=== PATIENT | male | born 1940 | race African-American/Black ===

== ENCOUNTER → 2018-03-07 | Outpatient (CLI) | payer OTHER ==
[~2018-03-07] MED LIST: ACTOS 45 MG45 M1 PO; ALBUTEROL; ALBUTEROL2.5 MG/31 INH; ALLOPURINOL 30300 M1 PO; AMLODIPINE BESYL5 M1 PO; ASPIRIN325 PO; BYSTOLIC10 MG PO; CLOPIDOGREL75 MG PO; COZAAR 50 MG TA50 M1 PO; EPOGEN2000 UNIT/ SUBQ; FERRO-TIME325 MG PO; FERROUS GLUCON325 M4 PO; FORADIL 1212 MCG/KI1 INH; FUROSEMIDE 40 M40 M1 PO; GLIPIZIDE ER5 MG PO; GLUCOTROL5 MG PO; K-DUR10 MEQ PO; LASIX 20 MG TAB20 MG PO; LASIX 40 MG TAB40 M1 PO; LAXATIVE8.6 MG PO; MIRALAX255 GM PO; SENNA PO; SPIRIVA INH; TAMSULOSIN HCL0.4 M1 PO; ZYRTEC10 M2 PO
== END ==
LOC: NUC 08:20
DX: R07.89 Other chest pain (principal); I11.0 Hypertensive heart disease with heart failure; I50.9 Heart failure, unspecified; E78.5 Hyperlipidemia, unspecified; I73.9 Peripheral vascular disease, unspecified; I48.91 Unspecified atrial fibrillation; I25.10 Atherosclerotic heart disease of native coronary artery without angina pectoris; E11.9 Type 2 diabetes mellitus without complications

== ENCOUNTER → 2020-06-04 | Outpatient (CLI) | payer OTHER | LOC: SJCVC 10:05 | PROVIDERS: ATTEND Internal Medicine Cardiovascular Disease | DX: R94.31 Abnormal electrocardiogram [ECG] [EKG] (principal); I25.10 Atherosclerotic heart disease of native coronary artery without angina pectoris; R07.9 Chest pain, unspecified; E11.22 Type 2 diabetes mellitus with diabetic chronic kidney disease; I12.9 Hypertensive chronic kidney disease with stage 1 through stage 4 chronic kidney disease, or unspecified chronic kidney disease; N18.3 Chronic kidney disease, stage 3 (moderate); E11.51 Type 2 diabetes mellitus with diabetic peripheral angiopathy without gangrene; Z79.4 Long term (current) use of insulin; Z95.2 Presence of prosthetic heart valve; Z95.1 Presence of aortocoronary bypass graft ==

== ENCOUNTER → 2020-06-11 | Outpatient (CLI) | payer OTHER | LOC: SJCVCIMAG 11:10 | PROVIDERS: ATTEND Internal Medicine Cardiovascular Disease | DX: I44.0 Atrioventricular block, first degree (principal); I70.203 Unspecified atherosclerosis of native arteries of extremities, bilateral legs; T82.856A Stenosis of peripheral vascular stent, initial encounter; E78.5 Hyperlipidemia, unspecified; I25.810 Atherosclerosis of coronary artery bypass graft(s) without angina pectoris; I12.9 Hypertensive chronic kidney disease with stage 1 through stage 4 chronic kidney disease, or unspecified chronic kidney disease; E11.22 Type 2 diabetes mellitus with diabetic chronic kidney disease; N18.9 Chronic kidney disease, unspecified; E66.9 Obesity, unspecified; Z82.49 Family history of ischemic heart disease and other diseases of the circulatory system; Z95.820 Peripheral vascular angioplasty status with implants and grafts; Z87.891 Personal history of nicotine dependence; Z79.82 Long term (current) use of aspirin; Z79.899 Other long term (current) drug therapy; Z95.1 Presence of aortocoronary bypass graft; Z95.2 Presence of prosthetic heart valve; Y83.8 Other surgical procedures as the cause of abnormal reaction of the patient, or of later complication, without mention of misadventure at the time of the procedure; Y92.89 Other specified places as the place of occurrence of the external cause ==

== ENCOUNTER 2020-06-25 06:52 | Observation (INO) | payer OTHER ==
[~2020-06-25] VITALS: Ht 172.7 cm; Wt 100.2 kg
[2020-06-25 07:32] LABS: HEMATOCRIT 37.4 % (42.0-52.0); HEMOGLOBIN 12.1 gm/dL (14.0-18.0); MCH 29.7 pg (26.0-34.0); MCHC 32.4 g/dL (28.0-37.0); MCV 91.6 fL (80.0-100.0); RBC 4.09 mil/uL (4.50-6.00); RDW 17.3 % (10.5-14.5); WBC 7.8 thou/uL (4.0-11.0)
[2020-06-25 07:45] VITALS: BP 158/60
[2020-06-25 07:49] LABS: CALCIUM 9.6 mg/dL (8.5-10.1); CREATININE 2.1 mg/dL (0.7-1.3)
[2020-06-25] MEDS ORDERED: ALOGLIPTIN6.25 MG PO (08:35)
[2020-06-25] MEDS ORDERED: ASA81BEC PO (08:35)
[2020-06-25] MEDS ORDERED: BRIMONIDINE 0.110 ML EA. EYE (08:37)
[2020-06-25] MEDS ORDERED: ROCALTROL0.25 MCG PO (08:39)
[2020-06-25] MEDS ORDERED: CODEINE SULFATE30 MG PO (08:42)
[2020-06-25] MEDS ORDERED: VOLTAREN GEL 1100 G1 TOP (08:48)
[2020-06-25] MEDS ORDERED: COLACE100 MG PO (08:50)
[2020-06-25] MEDS ORDERED: ZETIA10 MG PO (08:50)
[2020-06-25] MEDS ORDERED: HYDRALAZINE 2525 MG PO (08:54)
[2020-06-25] MEDS ORDERED: LEVEMIR100 UNIT/1 SUBQ (09:00)
[2020-06-25] MEDS ORDERED: XALATAN2.5 ML OPHTHALMIC (09:02)
[2020-06-25] MEDS ORDERED: SINGULAIR 10 MG10 MG PO (09:04)
[2020-06-25] MEDS ORDERED: PROTONIX40 M2 PO (09:05)
[2020-06-25] MEDS ORDERED: MIRALAX119 GM PO (09:06)
[2020-06-25] MEDS ORDERED: CRESTOR40 MG PO (09:07)
[2020-06-25] MEDS ORDERED: FLOMAX0.4 MG PO (09:08)
[2020-06-25] MEDS ORDERED: ORADENT 0.1% DEN5 G1 TOP (09:09)
[2020-06-25] MEDS ORDERED: VALTREX 500 MG500 M1 PER TUBE (09:10)
[2020-06-25] MEDS ORDERED: AMBIEN5 MG PO (09:11)
[2020-06-25 16:00] VITALS: BP 144/63
--- NOTE | 2020-06-25 17:12 | CATHLAB ---
[facility] [place] [address] INVASIVE PROCEDURE REPORT Name: GENEVIEVE SARABIA Room #: 219-P [facility]#: [id number] Admission: 06/25/20 Attend Phys: Ray Carrillo MD, Discharge: Date of : 38 Report #: [id number] THIS REPORT FOR: cc: Rosana Wheatley MD, Mary Ellen MD Mancuso, Gerald M. MD [facility] ~ APPROVED REPORT Study performed: 06/25/2020 10:47:05 Patient Details Patient Status: Out-Patient Room #: The patient is a 79 year-old male Event Personnel Ray Carrillo Truck Greaser, Todd Jim RN, Kelli Bhat RT(R)() Scrub, Jenny Michael RTR Scrub, Marlys Engle RTR Monitor Procedures Performed Coronaries Angiography and Bypass Grafts [id number] CORCA Hemostasis w/ Mynx Indication Chest pain Procedure Narrative The was infiltrated with 1% Lidocaine subcutaneous anesthesia. A SHEATH BRITE-TIP 6F X 11CM ([id number]) sheath was inserted into the LFA^. Coronary angiography was performed using coronary diagnostic catheters. The right coronary system was accessed and visualized with a JR4 catheter. The left coronary system was accessed and visualized with a JL4 catheter. Closure device was deployed with a 6 Fr MYNXGRIP 6/7F #[id number]. The patient tolerated the procedure well and there were no complications associated with the procedure. There was no hematoma. Intraoperative Conscious Sedation Sedation start time: 839 Case end Time: 1044 Fentanyl 200 mcg Versed 3.0 mg SEDATION TOTALS, FLUORO DOSES,AND CONTRAST AMOUNTS ARE ALL FROM A COMBO CASE WITH DR HERNANDEZ Fluoro Time: 40.57 minutes [facility] [address] [address] INVASIVE PROCEDURE REPORT Name: CORNELLGENEVIEVE BALLESTEROS Room #: 219-P [facility]#: [id number] Admission: 06/25/20 Attend Phys: Ray Carrillo, Discharge: Date of : 39 Report #: [id number] Dose: DAP 05138.50 cGycm2 2191 mGy Contrast Type and Amount: Visipaque 147 ml Hemodynamics The aortic pressure is 154/56 mmHg with a mean of 45 mmHg. PCI Technique Lesion Percutaneous coronary intervention was performed on the Popliteal. A LAUNCHER 6FR JR 4 #[id number] Guide Catheter was used to engage the ostium. A Luge Wire .014 x 182CM #[id number] Interventional Guidewire was used to cross the lesion. BALLOON DILATION A Balloon catheter Sprinter OTW 2.5 x 12 #[id number] was inserted and inflated up to 18atm for 33seconds. Additional Inflation: 12atm for 16seconds. STENT DEPLOYMENT A drug-eluting stent RESOLUTE STEFF OTW 3.0 X 26 #[id number] was inserted and inflated up to 18atm for 25seconds. POST STENT DEPLOYMENT BALLOON DILATION A Balloon catheter TREK NC OTW 3.0 X 12 #[id number] was inserted and inflated up to 18atm for 24seconds. Additional Inflation: 22atm for 22seconds. Additional Inflation: 22atm for 22seconds. PCI Technique Lesion 2 Percutaneous Coronary Intervention was performed on the first obtuse marginal branch segment. Conclusion 1. Successful PTCA stent of a ostial proximal tandem lesions in a vein graft to OM system. 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 Dual antiplatelet therapy for vein graft stent noted [facility] [address] [place] [address] INVASIVE PROCEDURE REPORT Name: GENEVIEVE SARABIAHANIEL Room #: 219-P [facility] M.R.#: [id number] Admission: 06/25/20 Attend Phys: Ray Carrillo, Discharge: Date of : 39 Report #: [id number] above. 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 <ELECTRONICALLY SIGNED> By: Ray Carrillo MD, FACC 06/25/201711 11 11 Ray Carrillo MD, FACC /INF
[2020-06-25 20:24] VITALS: BP 146/61
--- NOTE | 2020-06-25 20:34 | NUR ---
ASSUMMED PT CARE AT APPROXIMATELY 1515. PT A&O X4. ASSESSMENT CHARTED. FALL PRECAUTIONS IN PLACE. PT DENIES HAVING CHEST PAIN. PT DENIES HAVING SOB. PT DENIES HAVING ACUTE PAIN. PT POST CATH. L GROIN C/D/I. NO HEMATOMA. VITAL SIGNS STABLE. BLOOD SUGARS STABLE. PT AMBULATES C CAN C STANDBY. PT COMFORTABLE. PT DENIES HAVING FURTHER CONCERNS.
[2020-06-26 00:05] VITALS: BP 157/56
[2020-06-26 04:00] VITALS: BP 166/67
[2020-06-26 05:54] LABS: HEMATOCRIT 32.4 % (42.0-52.0); HEMOGLOBIN 10.5 gm/dL (14.0-18.0); MCH 29.8 pg (26.0-34.0); MCHC 32.3 g/dL (28.0-37.0); MCV 92.3 fL (80.0-100.0); RBC 3.52 mil/uL (4.50-6.00); WBC 7.3 thou/uL (4.0-11.0)
--- NOTE | 2020-06-26 06:03 | NUR ---
GENEVIEVE WAS ADMITTED FOR CATH PROCEDURE (2 STENTS PLACED). HE HAS A LEFT GROIN DRESSING WHICH IS CLEAN/DRY/INTACT; MINX CLOSURE WAS UTILIZED. HE AMBULATES INDEPENDENT OF ASSISTANCE BUT UTILIZES A CANE; SOB ON EXERTION - SO HE BRIEFLY STOPS WHEN AMBULATING FROM BED TO BATHROOM. PATIENT STATED THAT HE USES A CPAP MACHINE AT HOME BUT DID NOT BRING IT BECAUSE HE BELIEVED HE WOULD BE DISCHARGED SOONER. HE WAS PLACED ON 1.5 LPM VIA NASAL CANNULA AND SEEMS TO TOLERATE WELL. PATIENT IS SINUS GARY TYPICALLY IN THE 50S. HE IS PROGRESSING WELL TOWARDS DISCHARGE.
[2020-06-26 06:09] LABS: ALBUMIN 2.9 g/dL (3.4-5.0); CREATININE 1.9 mg/dL (0.7-1.3); TOTAL BILIRUBIN 0.3 mg/dL (0.2-1.0); TOTAL PROTEIN 6.7 g/dL (6.4-8.2); TROPONIN-I 0.2 ng/mL (<0.06)
[2020-06-26 07:36] VITALS: BP 169/69
[2020-06-26] MEDS ORDERED: EFFIENT10 MG PO (07:55)
[2020-06-26 08:51] VITALS: BP 169/69
--- NOTE | 2020-06-26 10:48 | NUR ---
PT CARE ASSUMED APPROX 0700. ASSESSMENT CHARTED. PT DENIES PAIN AND SOA. VSS. DISCHARGED AT THIS TIME. LEFT UNIT APPROX 1030 AFTER DISCHARGE EDUCATION COMPLETED BY THIS NURSE. PT DENIED QUESTIONS OR CONCERNS REGARDING POST HOSPITAL CARE AND F/U. IV OUT, TELE OFF. PT SHOWERED IMMEDIATELY PRIOR TO DISMISSING AND DENIED ANY ISSUES OR CONCERNS. ESCORTED OFF UNIT VIA WHEELCHAIR.
--- NOTE | 2020-06-27 09:08 | EKG ---
[facility] [place] [address] ELECTROCARDIOGRAM REPORT Name: GENEVIEVE SARABIA Room #: 219-P [facility] M.R.#: [id number] Admission: 06/25/20 Attend Phys: Ray Carrillo MD, Discharge: 06/26/20 Date of : 39 Report #: [id number] THIS REPORT FOR: cc: Rosana Wheatley MD, Mary Ellen MD Lundgren,Tobi Rodríguez MD [facility] ~ THIS REPORT FOR: //name// [facility] Test Date: 2020-06-26 Test Time: 07:14:01 Pat Name: GENEVIEVE SARABIA Department: Room: 219 Gender: M Interior Design Coordinator: CARISSA : 1940 Requested By: Ray Carrillo Order Number: [id number] MD: Tobi Alves Measurements Intervals [place] Rate: 58 P: -21 UT: 277 QRS: 38 QRSD: 104 T: 67 QT: 456 QTc: 448 Interpretive Statements Sinus rhythm with first-degree AV block Multiple ventricular premature complexes Inferior infarct, old Compared to ECG 07/22/2017 14:01:59 No significant change was found Electronically Signed On 06-27-2020 9:07:55 CDT by Tobi Alves [email or web address] <ELECTRONICALLY SIGNED> By: Tobi Alves MD, FAC 06/27/20906 3 3 Tobi Alves MD, FAC /EPI
== END 2020-06-26 10:52 | disposition home or self-care (01) ==
LOC: CATH 06:52 → 2N 11:11 → CATH 12:16 → 2N 15:25
PROVIDERS: Nuclear Medicine Nuclear Cardiology; ADMIT Internal Medicine Cardiovascular Disease; ATTEND Internal Medicine Cardiovascular Disease
DX: I25.10 Atherosclerotic heart disease of native coronary artery without angina pectoris (principal); I70.201 Unspecified atherosclerosis of native arteries of extremities, right leg; E11.22 Type 2 diabetes mellitus with diabetic chronic kidney disease; I12.0 Hypertensive chronic kidney disease with stage 5 chronic kidney disease or end stage renal disease; N18.6 End stage renal disease; Z79.82 Long term (current) use of aspirin; Z79.899 Other long term (current) drug therapy
CPT/HCPCS: 10081

== ENCOUNTER → 2020-12-24 | Outpatient (CLI) | payer OTHER ==
[~2020-12-24] MED LIST changes: +ALOGLIPTIN6.25 MG PO; +AMBIEN5 MG PO; +ASA81BEC PO; +BRIMONIDINE 0.110 ML EA. EYE; +CODEINE SULFATE30 MG PO; +COLACE100 MG PO; +CRESTOR40 MG PO; +EFFIENT10 MG PO; +FLOMAX0.4 MG PO; +HYDRALAZINE 2525 MG PO; +LEVEMIR100 UNIT/1 SUBQ; +MIRALAX119 GM PO; +ORADENT 0.1% DEN5 G1 TOP; +PROTONIX40 M2 PO; +ROCALTROL0.25 MCG PO; +SINGULAIR 10 MG10 MG PO; +VALTREX 500 MG500 M1 PER TUBE; +VOLTAREN GEL 1100 G1 TOP; +XALATAN2.5 ML OPHTHALMIC; +ZETIA10 MG PO
== END ==
LOC: SJCVC 09:52
PROVIDERS: ATTEND Internal Medicine Cardiovascular Disease
DX: I25.10 Atherosclerotic heart disease of native coronary artery without angina pectoris (principal); E78.00 Pure hypercholesterolemia, unspecified; E11.22 Type 2 diabetes mellitus with diabetic chronic kidney disease; I12.9 Hypertensive chronic kidney disease with stage 1 through stage 4 chronic kidney disease, or unspecified chronic kidney disease; N18.30 Chronic kidney disease, stage 3 unspecified; E11.51 Type 2 diabetes mellitus with diabetic peripheral angiopathy without gangrene; Z79.899 Other long term (current) drug therapy; Z87.891 Personal history of nicotine dependence; Z72.89 Other problems related to lifestyle; Z79.4 Long term (current) use of insulin; Z95.1 Presence of aortocoronary bypass graft; Z95.2 Presence of prosthetic heart valve; Z88.1 Allergy status to other antibiotic agents; Z88.8 Allergy status to other drugs, medicaments and biological substances

== ENCOUNTER → 2021-01-26 | Outpatient (CLI) | payer OTHER | LOC: SJCVC 10:57 | PROVIDERS: ATTEND Internal Medicine Cardiovascular Disease | DX: R94.31 Abnormal electrocardiogram [ECG] [EKG] (principal); I49.3 Ventricular premature depolarization; I25.10 Atherosclerotic heart disease of native coronary artery without angina pectoris; I73.9 Peripheral vascular disease, unspecified; I35.0 Nonrheumatic aortic (valve) stenosis; E78.00 Pure hypercholesterolemia, unspecified; E11.22 Type 2 diabetes mellitus with diabetic chronic kidney disease; I12.9 Hypertensive chronic kidney disease with stage 1 through stage 4 chronic kidney disease, or unspecified chronic kidney disease; N18.9 Chronic kidney disease, unspecified; E78.5 Hyperlipidemia, unspecified; E66.9 Obesity, unspecified; Z95.1 Presence of aortocoronary bypass graft; Z95.2 Presence of prosthetic heart valve; Z88.8 Allergy status to other drugs, medicaments and biological substances; Z79.82 Long term (current) use of aspirin; Z79.4 Long term (current) use of insulin; Z79.899 Other long term (current) drug therapy; Z87.891 Personal history of nicotine dependence; Z82.49 Family history of ischemic heart disease and other diseases of the circulatory system ==

== ENCOUNTER → 2021-05-06 | Outpatient (CLI) | payer OTHER ==
[~2021-05-06] MED LIST changes: -BRIMONIDINE 0.110 ML EA. EYE; +BRIMONIDINE 0.110 ML OPHTHALMIC; +CLOBETASOL PROP50 M1 TOP; +CRESTOR10 MG PO; +DERMASARRA TOP; +FLUOCINOLONE AC15 G3 TOP; +OLMESARTAN MEDO40 MG PO; +PROAIR HFA8.5 GM INH; +TYLENOL ARTHRI650 MG PO; -VALTREX 500 MG500 M1 PER TUBE; +VALTREX 500 MG500 M1 PO; +VOLTAREN ARTHRI20 GM TOP; +ZYRTEC10 M4 PO
[2021-05-06 12:08] LABS: URINE BILIRUBIN NEGATIVE (Negative); URINE BLOOD NEGATIVE (Negative); URINE CLARITY CLEAR; URINE COLOR YELLOW; URINE GLUCOSE-RANDOM* NEGATIVE (Negative); URINE KETONES NEGATIVE (Negative); URINE LEUKOCYTES-REFLEX NEGATIVE (Negative); URINE NITRITE-REFLEX NEGATIVE (Negative); URINE PROTEIN (DIPSTICK) NEGATIVE (Negative); URINE UROBILINOGEN 0.2 E.U./dl (0.2-1.0)
[2021-05-06 12:09] LABS: HEMATOCRIT 31.9 % (42.0-52.0); HEMOGLOBIN 10.2 gm/dL (14.0-18.0); MCH 29.5 pg (26.0-34.0); MCV 92.2 fL (80.0-100.0); RBC 3.45 mil/uL (4.50-6.00); RDW 17.6 % (10.5-14.5); WBC 5.7 thou/uL (4.0-11.0)
[2021-05-06 12:28] LABS: ALBUMIN 3.5 g/dL (3.4-5.0); CALCIUM 9.1 mg/dL (8.5-10.1); CREATININE 2.9 mg/dL (0.7-1.3); INR 1.07; POTASSIUM 4.7 mmol/L (3.5-5.1); PROTIME 11.6 Seconds (10.5-12.1); TOTAL BILIRUBIN 0.4 mg/dL (0.2-1.0)
[2021-05-07 00:06] LABS: GLYCOHEMOGLOBIN (HGB A1C) 7.7 % (4.8-5.6)
== END ==
LOC: PAC 10:21
PROVIDERS: ATTEND Orthopaedic Surgery
DX: Z01.812 Encounter for preprocedural laboratory examination (principal); E11.9 Type 2 diabetes mellitus without complications; I25.10 Atherosclerotic heart disease of native coronary artery without angina pectoris

== ENCOUNTER → 2021-05-12 | Outpatient (CLI) | payer OTHER | LOC: SJCVCIMAG | PROVIDERS: ATTEND Internal Medicine Cardiovascular Disease | DX: I49.3 Ventricular premature depolarization (principal); I25.10 Atherosclerotic heart disease of native coronary artery without angina pectoris; E78.5 Hyperlipidemia, unspecified; I10 Essential (primary) hypertension; I73.9 Peripheral vascular disease, unspecified; E11.9 Type 2 diabetes mellitus without complications; Z87.891 Personal history of nicotine dependence; Z79.82 Long term (current) use of aspirin; Z79.899 Other long term (current) drug therapy; Z88.8 Allergy status to other drugs, medicaments and biological substances; Z88.1 Allergy status to other antibiotic agents; Z95.1 Presence of aortocoronary bypass graft ==

== ENCOUNTER 2021-05-20 11:19 | Inpatient (IN) | payer OTHER ==
[~2021-05-20] VITALS: Ht 152.4 cm; Wt 99.8 kg
[2021-05-20 14:27] VITALS: BP 175/55
[2021-05-20 17:23] VITALS: BP 176/54
[2021-05-20 19:13] VITALS: BP 168/58
--- NOTE | 2021-05-20 19:25 | NUR ---
Pt came from recovery room with total left knee replacement. Dressed in david bandage C/D/I. Good mobility & pulses bilaterally. IV in right hand running NS at 75ml/hr. No c/o pain noted. Ice pack for pain. Lung sounds diminshed. uses CPAP at night. Hypoactive bowel sounds. Side rails up X 2. Bed in low position. Call light within reach.
[2021-05-21 07:02] VITALS: BP 118/45
[2021-05-21 07:37] VITALS: BP 118/45
[2021-05-21 07:48] LABS: CALCIUM 8.4 mg/dL (8.5-10.1); CREATININE 2.9 mg/dL (0.7-1.3); MAGNESIUM 2.2 mg/dL (1.8-2.4); POTASSIUM 4.7 mmol/L (3.5-5.1)
[2021-05-21 07:53] LABS: HEMOGLOBIN 7.7 gm/dL (14.0-18.0); MCH 29.8 pg (26.0-34.0); MCHC 32.2 g/dL (28.0-37.0); MCV 92.3 fL (80.0-100.0); PLATELET COUNT 77 thou/uL (150-400); RDW 16.8 % (10.5-14.5); WBC 6.8 thou/uL (4.0-11.0)
[2021-05-21 08:57] LABS: ABSOLUTE NEUTROPHILS 5.6 thou/uL (1.4-8.2); BASOPHILS 0.1 % (0.0-2.0); EOSINOPHILS 0.1 % (0.0-3.0); LYMPHOCYTES 10.7 % (24.0-44.0); MONOCYTES 7.3 % (1.0-8.0); POLYS 81.8 % (36.0-66.0)
[2021-05-21 09:38] VITALS: BP 168/58
--- NOTE | 2021-05-21 11:28 | NUR ---
ASSUMED PT CARE THIS AM. PT IS ALERT & ORIENTED X4. PT HAS IV SITE ON R HAND RUNNING NS @75ML/HR. PT IS UP WITH ASSIST X1 WITH WALKER AND GAITBELT. PT IS ACCUCHECK ACHS. PT IS ON ROOM AIR. PT HAS JENNY DRESSING, POLAR PACK AND KNEE HIGH BILATERAL [facility] [employer]. PT USES CPAP @ NIGHT. PT TOLERATED DIET AND MEDICATION WELL. PT C/O OF PAIN AND GIVEN SCHEDULED PAIN MEDICATION PER ORDERED. NO C/O OF NAUSEA AND VOMITING DURING THE SHIFT. PT DID WELL WITH PHYSICAL THERAPY TODAY. OK FOR DC PER PHYSICAL THERAPY STAND POINT. AWAITING FOR HOSPITALIST INPUT. PT AT THE BEDSIDE. PT ON THE BED, BED ON THE LOWEST POSITION, SIDE RAILS UP, CALL LIGHT WITHIN REACH. WILL CONTINUE TO MONITOR PT. FOLLOW POC.
--- NOTE | 2021-05-21 14:16 | NUR ---
ASSESSMENT: CM REVIEWED CHART AND MET WITH PATIENT AT THE BEDSIDE WITH HIS . PT IS S/P TOTAL KNEE REPLACEMENT. PT REPORTS LIVING IN AN APT WITH THAT HE USES AN ELEVATOR TO ACCESS. PT REPORTS HE HAS A CANE, GRAB BAR, AND SHOWER CHAIR. PT REPORTS HE IS NORMALLY INDEPENDENT WITH ADLS. PT REPORTS THAT HE HAD OUTPATIENT THERAPY ARRANGED HERE AT [facility] TO BEGIN TOMORROW BUT STATES HE IS STAYING OVERNIGHT. CM CONTACTED [facility] IN OUTPATIENT THERAPY TO NOTIFY HER AND SHE STATES THEY HAVE ANOTHER APPT OPEN Tuesday IF PT WANTS THAT. CM PROVIDED PATIENT WITH NUMBER TO OUTPATIENT THERAPY TO SCHEDULE THAT APPT IF THEY WANT IT. PT IS NEEDING A WALKER FOR HOME. PT REPORTS NO PREFERENCE OF [employer]. CM NOTIFIED DONALDO AT [employer] WHO REPORTS A WALKER CAN BE ISSUED BY PHYSICAL THERAPY TO PATIENT. PHYSICAL THERAPIST GAVE PATIENT WALKER. CM WILL CONTINUE TO FOLLOW TO ASSIST NEEDED.
[2021-05-21 17:02] VITALS: BP 120/37
[2021-05-21 20:00] VITALS: BP 107/40
[2021-05-22] VITALS: BP 107/40
[2021-05-22 03:29] LABS: HEMOGLOBIN 6.9 gm/dL (14.0-18.0); MCH 30.1 pg (26.0-34.0); RBC 2.29 mil/uL (4.50-6.00)
[2021-05-22 03:30] LABS: HEMATOCRIT 21.4 % (42.0-52.0); MCHC 32.2 g/dL (28.0-37.0); MCV 93.4 fL (80.0-100.0); RDW 17.1 % (10.5-14.5); WBC 7.9 thou/uL (4.0-11.0)
--- NOTE | 2021-05-22 03:34 | NUR ---
ASSESSMENT: PT REMAIN ALERT AND ORIENT TIMES FOUR, DENIES PAIN, SOB AND N/V. POLAR LEILA INTACT WITH ICE. POSSIBLE DC TO HOME TODAY. VSS, AFEBRILE. TOLERATING PO INTAKE. SLOW PROGRESS TOWARDS DC GOALS. WILL CONTINUE TO MONITOR.
[2021-05-22 03:35] LABS: CREATININE 3.3 mg/dL (0.7-1.3); MAGNESIUM 2.2 mg/dL (1.8-2.4); POTASSIUM 4.1 mmol/L (3.5-5.1)
[2021-05-22 08:22] VITALS: BP 124/41
--- NOTE | 2021-05-22 11:05 | NUR ---
ON-GOING ASSESSMENT:CM REVIEWED CHART. PT CONTINUES TO WORK WITH THERAPY. PTS HEMOGLOBIN IS LOWER TODAY. PT WAS ISSUED A WALKER FROM PHYSICAL THERAPY FOR PATIENT THROUGH [employer]. PT WILL CONTINUE TO WORK WITH THERAPIES AND PLAN IS TO DO OUTPATIENT THERAPY HERE AT [facility] ONCE STABLE. CM WILL CONTINUE TO FOLLOW TO ASSIST NEEDED. PT SHOULD HAVE NO NEEDS AT THE TIME OF DISCHARGE.
[2021-05-22 12:57] LABS: HEMOGLOBIN 7.3 gm/dL (14.0-18.0); MCH 29.8 pg (26.0-34.0); MCHC 31.8 g/dL (28.0-37.0); MCV 93.7 fL (80.0-100.0); RBC 2.46 mil/uL (4.50-6.00); RDW 17.2 % (10.5-14.5); WBC 10.1 thou/uL (4.0-11.0)
--- NOTE | 2021-05-22 13:25 | NUR ---
Assumed care of pt at 0700. Pt a&ox4. Noticed hg 6.9 this am and creatinine 3.3. Provider notified. CBC to be drawn again by lab. Dressing c/d/i. SBA with walker and gait-belt. Pt will not discharge to home today. Family at bedside. Call light within reach. Fall precautions in place. Will continue to monitor.
[2021-05-22 16:26] VITALS: BP 101/41
[2021-05-22 19:15] VITALS: BP 90/44
--- NOTE | 2021-05-22 23:07 | O ---
[facility] [place] [address] OPERATIVE REPORT Name: GENEVIEVE SARABIA Room #: 437-P [facility] M.R.#: [id number] Admission: 05/20/21 Attend Phys: Jovanny Francis MD Discharge: Date of : 39 Report #: [id number] THIS REPORT FOR: cc: BRENDA DE LA ROSA MD, BEVERLEY B. MD Abraham, Scott M. MD ~ DOC #: [id number] Jovanny Francis MD DATE OF SERVICE: 05/20/2021 PREOPERATIVE DIAGNOSIS: Left knee osteoarthritis. POSTOPERATIVE DIAGNOSIS: Left knee osteoarthritis. PROCEDURE: Left total knee arthroplasty using Navio robotic assistance. SURGEON: Jovanny Francis MD. UNIFORM FORCE CAPTAIN: [place] PA-C. INDICATION FOR UNIFORM FORCE CAPTAIN: Throughout the case, extensive retraction and manipulation of the knee was required. This was afforded to me by my retirement assistant. ANESTHESIA: LMA with an adductor canal block. IMPLANTS: Goldman [employer] Nephew size 5 Journey II BCS femur, size 5 tibia, size 11 polyethylene and size 35 patella. TOURNIQUET TIME: 58 minutes. ESTIMATED BLOOD LOSS: 100 mL. COMPLICATIONS: None. SPECIMENS: None. CONDITION UPON LEAVING THE OR: Stable. INDICATIONS FOR PROCEDURE: The patient is an 80-year-old gentleman with severe left knee osteoarthritis. He had failed conservative measures for this, and after discussion with him, he elected for left total knee arthroplasty. DESCRIPTION OF PROCEDURE: Risks, benefits, alternatives and complications were discussed in detail with the patient including but not limited to risk of anesthesia, risk of damage to nerves, arteries, blood vessels, risk for infection, bleeding, risk for continued knee pain and need for reoperation. [facility] [address] [place] [address] OPERATIVE REPORT Name: GENEVIEVE SARABIA Room #: 437-P [facility] [place] M.R.#: [id number] Admission: 05/20/21 Attend Phys: Jovanny Francis MD Discharge: Date of : 39 Report #: [id number] Informed consent was obtained from the patient. Left knee was appropriately marked in the preoperative holding area. IV Ancef was given for preoperative antibiotics. He was brought to the operating room and placed in the supine position on the operating table. LMA anesthesia was induced without complication. Tourniquet was placed on the left thigh. Left lower extremity was prepped and draped in normal sterile fashion. Timeout was performed properly identifying the patient and procedure as well as the instrumentation and implants. All in the operating room in agreement. Left lower extremity was exsanguinated, tourniquet was inflated. Tourniquet time was 58 minutes. Standard midline approach to the knee was made with 10 blade through the skin. Dissection was taken down sharply to the fascia. Deep flaps were developed medially and laterally. Fresh 10 blade was used to make a medial parapatellar arthrotomy, and the knee was inspected. There was severe tricompartmental osteoarthritis. ACL and PCL were removed sharply. Reference pins were placed in the femur and the tibia. The knee was then digitally mapped using the [employer] robotic system. Intraoperative plan was made. We sized the size 5 femur, size 3 tibia and a 10 spacer. After acceptance of the intraoperative plan, the distal femoral cut was made with Navio bur. Distal femoral cutting block was pinned in place and chamfer cuts were made. Attention was turned to the tibia. Remainder of the menisci were removed with Bovie cautery. Tibial resection guide was pinned in place using Navio for placement. Tibial resection was made. Flexion and extension gaps were then checked and found to have good balance in extension. Medially, it was somewhat tight in flexion and so a limited medial release was performed using the piecrust technique, this balanced the knee well. Tibia sized, found to be a size 5. A size 5 tibial trial was placed, pinned and punch. A size 5 femoral trial was placed and box cut was made. This was then trialed with a size 10 and then a size 11 polyethylene. The size 11 polyethylene demonstrated 1-2 mm laxity medially and laterally throughout range of motion of the knee. A 9 mm of bone was resected from the posterior surface of the patella and a size 35 patellar trial button was placed. The knee was taken through range of motion, found to be stable, found to have good patellar tracking. Trial components were removed. Bone ends were thoroughly irrigated with normal saline. A final size 5, tibia size 5 Journey II BCS Oxinium femur and a size 35 patella were cemented in place using standard cementation techniques. While the cement cured, a periarticular injection consisting of morphine, ropivacaine, epinephrine, Toradol was placed around the knee joint capsule. After the cement cured, the tourniquet was deflated. Hemostasis was obtained with Bovie cautery. Final size 11 polyethylene was placed. A gram of vancomycin was placed deep in the joint. The fascia was closed with 0 Vicryl. Skin was closed with 2-0 Vicryl, skin staple and a JENNY dressing was applied. The patient tolerated this procedure well and went to recovery room under the care of anesthesia postoperatively. MD LEROY Victor/JUAN JOSE/YOHANNES [address] [address] OPERATIVE REPORT Name: GENEVIEVE SARABIA Room #: 437-P [facility] M.R.#: [id number] Admission: 05/20/21 Attend Phys: Jovanny Francis MD Discharge: Date of : 38 Report #: [id number] <ELECTRONICALLY SIGNED> By: Jovanny Francis MD 05/22/21 2307 1536 1801 Jovanny Francis MD /nt
--- NOTE | 2021-05-22 23:58 | NUR ---
ASSESSED PT AT START OF SHIFT 1899. BEDSIDE REPORT DONE. PT ASLEEP IN BED. BY BEDSIDE. CONCERNED THAT PT WAS WEAK DURING THE DAY AND NOT ABLE TO EAT MUCH. OUTGOING RN UPDATED ABOUT CARE. HGB 7.3. VITAL SIGNS AND HOURLY ROUNDING DONE ON PT. AT 2109 THIS NURSE WENT IN TO SEE PT AND FOUND HIM UNRESPONSIVE. CODE BLUE ACTIVATED. CODE TEAM ARRIVED AFTER SEVERAL ROUNDS OF EPI AND CPR PT DID NOT MAKE IT. TIME OF 2158 CALLED BY ER DOCTOR DR AVALOS AND ELECTRICAL MECHANIC MURTAZA NOEL. DURING CODE X4 SEVERAL ATTEMPTS TO REACH WAS UNSUCCESSFUL. CALLED DAUGHTER AND INFORMED ABOUT SITUATION. DR CHARO CHAVEZ NOTIFIED CAME DOWN TO UNIT TO SPEAK WITH FAMILY AND DR BEDOYA ALSO NOTIFED BASED OFF CONSULT AND PT'S PRIMARY CARDIAC DRKaity ROSALES NOTIFIED AND PT NOT A CANDIDATE DUE TO OVERAGE. FAMILY MOURNING AT THE BEDSIDE WILL CONT WITH POST MORTEM CARE.
== END 2021-05-22 21:59 | DRG 470 ==
LOC: OR → TBA 11:19 → OR 11:28 → 4S 16:44 → OR 16:57 → 4S 16:58 → OR 17:10 → 4S 05-22 21:59
PROVIDERS: Internal Medicine; Nurse Practitioner; ADMIT Orthopaedic Surgery; ATTEND Orthopaedic Surgery
PROC: 0SRD069 Replacement of Left Knee Joint with Oxidized Zirconium on Polyethylene Synthetic Substitute, Cemented, Open Approach (ICD-10-PCS; principal; 2021-05-20)
PROC: 8E0Y0CZ Robotic Assisted Procedure of Lower Extremity, Open Approach (ICD-10-PCS; principal; 2021-05-20)
PROC: 5A09457 Assistance with Respiratory Ventilation, 24-96 Consecutive Hours, Continuous Positive Airway Pressure (ICD-10-PCS; principal; 2021-05-20)
PROC: 30233N1 Transfusion of Nonautologous Red Blood Cells into Peripheral Vein, Percutaneous Approach (ICD-10-PCS; 2021-05-22)
PROC: 5A2204Z Restoration of Cardiac Rhythm, Single (ICD-10-PCS; 2021-05-22)
PROC: 5A12012 Performance of Cardiac Output, Single, Manual (ICD-10-PCS; 2021-05-22)
DX: M17.12 Unilateral primary osteoarthritis, left knee (principal); N17.9 Acute kidney failure, unspecified; D62 Acute posthemorrhagic anemia; E78.5 Hyperlipidemia, unspecified; E11.51 Type 2 diabetes mellitus with diabetic peripheral angiopathy without gangrene; I25.10 Atherosclerotic heart disease of native coronary artery without angina pectoris; N18.9 Chronic kidney disease, unspecified; I46.9 Cardiac arrest, cause unspecified; J44.9 Chronic obstructive pulmonary disease, unspecified; K21.9 Gastro-esophageal reflux disease without esophagitis; I12.9 Hypertensive chronic kidney disease with stage 1 through stage 4 chronic kidney disease, or unspecified chronic kidney disease; E11.22 Type 2 diabetes mellitus with diabetic chronic kidney disease; N40.0 Benign prostatic hyperplasia without lower urinary tract symptoms; Z95.2 Presence of prosthetic heart valve; Z87.891 Personal history of nicotine dependence; Z95.5 Presence of coronary angioplasty implant and graft; Z95.1 Presence of aortocoronary bypass graft; Z88.1 Allergy status to other antibiotic agents; Z98.42 Cataract extraction status, left eye; Z98.41 Cataract extraction status, right eye; Z88.8 Allergy status to other drugs, medicaments and biological substances; Z79.82 Long term (current) use of aspirin; Z79.899 Other long term (current) drug therapy; I25.2 Old myocardial infarction; Z79.4 Long term (current) use of insulin
CPT/HCPCS: 10102; 50010; 50101; 50415; 50954; 51130; 51225; 51320; 51412; 52001; 52282; 53000; 53078; 56527; 56528; 57095; 57103; 57110; 57127; 57180; 58239; 62110; 62900; 64043; 65060; 70005